=== PATIENT | male | born 1960 | race Caucasian/White ===

== ENCOUNTER 2017-01-27 17:33 | Inpatient (IN) | payer BC, SELFPAY ==
[~2017-01-27] VITALS: Ht 167.6 cm; Wt 114.9 kg
[2017-01-27 18:22] LABS: BASO % 0.3 % (0.2-1.2); EOS # 0.1 10_X3_uL (0.0-0.5); GRAN # 5.9 10_X3_uL (1.8-5.4); GRAN % 66.3 % (34.0-67.9); HEMATOCRIT 47.7 % (40-51); HEMOGLOBIN 16.5 g/dL (13.7-17.5); LYMPH # 1.5 10_X3_uL (1.3-3.6); LYMPH % 16.7 % (21.8-53.1); MEAN CORPUSCULAR HEMOGLOBIN 30.9 pg (27.0-33.0); MEAN CORPUSCULAR HGB CONC 34.6 g/dL (32.0-36.0); MEAN CORPUSCULAR VOLUME 89.3 fL (79-92); MEAN PLATELET VOLUME 10.7 fl (7.5-11.5); MONO # 1.4 10_X3_uL (0.3-0.8); MONO % 15.7 % (5.3-12.2); PLATELET COUNT 220 x10_3/uL (163-337); RED BLOOD COUNT 5.34 x10_6/uL (4.6-6.1); RED CELL DISTRIBUTION WIDTH 13.1 % (11.6-14.4); WHITE BLOOD COUNT 8.9 x10_3/uL (4.2-9.1)
[2017-01-27 19:09] LABS: ALBUMIN 3.9 gm/dL (3.4-5.0); ALKALINE PHOSPHATASE 73 U/L (50-136); ALT/SGPT 55 U/L (7.53-40.17); AST/SGOT 28 U/L (6.66-35.34); BILIRUBIN,TOTAL 0.43 mg/dL (0.0-1.0); BLOOD UREA NITROGEN 7 mg/dL (7-18); CALCIUM 8.7 mg/dL (8.7-10.7); CARBON DIOXIDE 24 mmol/L (21-32); CREATINE KINASE 146 U/L (35-232); CREATININE 0.6 mg/dL (0.6-1.3); GLUCOSE,RANDOM 110 mg/dL (70-99); POTASSIUM 3.8 mmol/L (3.5-5.1); SODIUM 136 mmol/L (136-145); TOTAL PROTEIN 6.8 gm/dL (6.4-8.2)
[2017-01-29 00:11] LABS: POTASSIUM 4.1 mmol/L (3.5-5.1)
[2017-01-29 07:19] LABS: HEMATOCRIT 43.8 % (40-51); HEMOGLOBIN 14.8 g/dL (13.7-17.5); MEAN CORPUSCULAR HEMOGLOBIN 30.9 pg (27.0-33.0); MEAN CORPUSCULAR HGB CONC 33.8 g/dL (32.0-36.0); MEAN CORPUSCULAR VOLUME 91.4 fL (79-92); MEAN PLATELET VOLUME 10.2 fl (7.5-11.5); RED BLOOD COUNT 4.79 x10_6/uL (4.6-6.1); RED CELL DISTRIBUTION WIDTH 13.5 % (11.6-14.4); WHITE BLOOD COUNT 13.9 x10_3/uL (4.2-9.1)
[2017-01-29 07:25] LABS: BLOOD UREA NITROGEN 14 mg/dL (7-18); CARBON DIOXIDE 26 mmol/L (21-32); CREATININE 0.7 mg/dL (0.6-1.3); GLUCOSE,RANDOM 100 mg/dL (70-99); POTASSIUM 4.1 mmol/L (3.5-5.1); SODIUM 143 mmol/L (136-145)
== END 2017-01-29 11:10 | disposition home or self-care (01) | DRG 872 ==
LOC: ER 17:33 → MS 19:33
PROVIDERS: Emergency Medicine; ADMIT Family Medicine
DX: A41.9 Sepsis, unspecified organism (principal); J44.1 Chronic obstructive pulmonary disease with (acute) exacerbation; R04.2 Hemoptysis; Z68.41 Body mass index [BMI] 40.0-44.9, adult; R74.0 Nonspecific elevation of levels of transaminase and lactic acid dehydrogenase [LDH]; J60 Coalworker's pneumoconiosis; I10 Essential (primary) hypertension; E78.5 Hyperlipidemia, unspecified; E66.9 Obesity, unspecified; R60.0 Localized edema; R10.811 Right upper quadrant abdominal tenderness; R51 Headache; M79.1 Myalgia; J02.9 Acute pharyngitis, unspecified; Z83.3 Family history of diabetes mellitus; Z80.9 Family history of malignant neoplasm, unspecified; Z82.49 Family history of ischemic heart disease and other diseases of the circulatory system; Z79.82 Long term (current) use of aspirin; Z79.899 Other long term (current) drug therapy
CPT/HCPCS: 36415; 71010; 71250; 80048; 80053; 82550; 82553; 83605; 83735; 84132; 85025; 86738; 87040; 87070; 87205; 87400; 87449; 93005; 94640; 94664; 96365; 96375; 99070; 99285-25; J2930; J7050